=== PATIENT | male | born 1990 | race Hispanic/Latino ===

== ENCOUNTER 2018-04-16 18:47 | Emergency (ER) | payer SELFPAY ==
[2018-04-16] MEDS ORDERED: NA CHLORIDE 0.9% 1,000 ML ONE (19:50)
[2018-04-16] MEDS ORDERED: ONDANSETRON 4 MG/2 ML VIAL ONE (19:50)
[2018-04-16] MEDS ORDERED: KETOROLAC 30 MG/ML INJ ONE (19:50)
[2018-04-16] MEDS ORDERED: FAMOTIDINE 20 MG/2 ML VIAL IV ONE (19:50)
[2018-04-16 20:00] LABS: Absolute Lymphocytes (CBC) 1.9 K/uL (0.7-4.9); Absolute Monocytes 0.7 K/uL (0.1-1.3); Absolute Neutrophil 7.2 K/uL (1.8-8.0); Basophils % 0.2 % (0-1.3); Eosinophils % 0.1 % (0-4.4); Hematocrit 45.7 % (39.6-49.0); Lymphocytes % 19.4 % (15.3-44.8); MCH 30.4 pg (27.0-35.0); MPV 9.1 fL (7.6-11.3); Monocytes % 7.4 % (3.3-12.3); RBC Red Blood Cell Count 5.08 M/uL (4.33-5.43)
[2018-04-16 20:10] LABS: Albumin 4.7 g/dL (3.4-5.0); Bilirubin Direct 0.1 mg/dL (0-0.2); Bilirubin Total 0.6 mg/dL (0.2-1.0); Potassium 3.8 mmol/L (3.5-5.1); Protein, Total 9.2 g/dL (6.4-8.2)
--- NOTE | 2018-04-16 20:12 | RAD REPORT ---
EXAM DESCRIPTION: RAD - Chest Pa And Lat (2 Views) - 04/16/2018 8:07 pm CLINICAL HISTORY: Abdominal pain, chest pain COMPARISON: None. TECHNIQUE: PA and lateral views of the chest were obtained. FINDINGS: The lungs are underinflated. No focal lung parenchymal process. No pulmonary edema, failur e or volume overload. Heart size is normal and central vasculature is within normal limits. No ple ural effusion or pneumothorax seen. No acute bony finding noted. No aortic abnormality. IMPRESSION: No acute cardiopulmonary process.
--- NOTE | 2018-04-16 21:42 | ER ---
Nurse's Notes [facility] Name: Anthony Carolina Age: 28 yrs Sex: Male : 1990 Arrival Date: 04/16/2018 Time: 18:51 Bed 23 Private MD: None, None Diagnosis: Acute Alcohol-Induced Gastritis Presentation: 04/16 19:03 Presenting complaint: Patient states: "I drank 2 bottles of liquor last night, I don't lp1 usually drink and I've been throwing up all day and can't hold anything down"; patient concerned he may have alcohol poisoning, states some blood in vomit; states bruise to right foot "but it doesn't hurt". Transition of care: patient was not received from another setting of care. Onset of symptoms was April 16, 2018. Risk Assessment: Do you want to hurt yourself or someone else? Patient reports no desire to harm self or others. Initial Sepsis Screen: Does the patient meet any 2 criteria? No. Patient's initial sepsis screen is negative. Does the patient have a suspected source of infection? No. Patient's initial sepsis screen is negative. Care prior to arrival: None. 19:03 Method Of Arrival: Ambulatory lp1 19:03 Acuity: JACKIE 3 lp1 Historical: - Allergies: 19:05 No Known Allergies; lp1 - Home Meds: 19:05 None [Active]; lp1 - PMHx: 19:05 None; lp1 - PSHx: 19:05 None; lp1 - Immunization history:: Adult Immunizations up to date. - Social history:: Smoking status: Patient/guardian denies using tobacco. - Ebola Screening: : No symptoms or risks identified at this time. - Family history:: not pertinent. - Hospitalizations: : No recent hospitalization is reported. Screenin:15 Abuse screen: Denies threats or abuse. Denies injuries from another. Nutritional lp1 screening: No deficits noted. Tuberculosis screening: No symptoms or risk factors identified. Fall Risk None identified. Assessment: 19:13 GI: Pt is actively vomiting bile. lp1 19:14 General: Appears uncomfortable, Behavior is appropriate for age. Pain: Complains of lp1 pain in throat Pain currently is 3 out of 10 on a pain scale. Aggravated by vomiting. Neuro: Level of Consciousness is awake, alert, obeys commands, Oriented to person, place, time, situation, Gait is steady, Speech is normal, Pupils are PERRLA. Cardiovascular: Patient's skin is warm and dry. Respiratory: Respiratory effort is even, unlabored. : No signs and/or symptoms were reported regarding the genitourinary system. EENT: Reports pain throat. Derm: Skin is intact, Skin is clammy, Skin is flushed. Musculoskeletal: Circulation, motion, and sensation intact. 20:24 Reassessment: Patient is alert, oriented x 3, equal unlabored respirations, skin lp1 warm/dry/pink. Patient states feeling better. Patient states symptoms have improved. 21:28 Reassessment: Patient appears in no apparent distress at this time. Patient is alert, lp1 oriented x 3, equal unlabored respirations, skin warm/dry/pink. Patient states feeling better. GI: Patient currently denies nausea. Vital Signs: 19:05 BP 123 / 78; Pulse 79; Resp 18; Temp 98.4(O); Pulse Ox 98% on R/A; Weight 95.25 kg; lp1 Height 5 ft. 7 in. (170.18 cm); Pain 3/10; 20:25 BP 112 / 79; Pulse 73; Resp 16; Pulse Ox 100% on R/A; lp1 21:27 BP 119 / 70; Pulse 73; Resp 16; Pulse Ox 100% on R/A; lp1 19:05 Body Mass Index 32.89 (95.25 kg, 170.18 cm) lp1 ED Course: 18:51 Patient arrived in ED. sb2 18:52 None, None is Private Physician. sb2 19:03 Veronica Bennett, RN is Primary Nurse. lp1 19:05 Triage completed. lp1 19:05 Arm band placed on right wrist. lp1 19:13 Inserted saline lock: 20 gauge in right antecubital area, using aseptic technique. lp1 Blood collected. 19:14 Burton Márquez MD is Attending Physician. wa 19:15 Patient has correct armband on for positive identification. Pulse ox on. NIBP on. lp1 20:07 Chest Pa And Lat (2 Views) XRAY In Process Unspecified. EDMS 21:28 IV discontinued, intact, bleeding controlled, No redness/swelling at site. Pressure jp3 dressing applied. 21:28 No provider procedures requiring assistance completed. lp1 21:50 IV discontinued. lp1 Administered Medications: 19:51 Drug: NS 0.9% 1000 ml Route: IV; Rate: 1 bolus; Site: right antecubital; lp1 21:29 Follow up: IV Status: Completed infusion; IV Intake: 1000ml lp1 19:51 Drug: Zofran 4 mg Route: IVP; Site: right antecubital; lp1 20:24 Follow up: Response: Marked relief of symptoms; Nausea is decreased lp1 19:51 Drug: Pepcid 20 mg Route: IVP; Site: right antecubital; lp1 20:24 Follow up: Response: No adverse reaction lp1 19:51 Drug: TORadol 30 mg Route: IVP; Site: right antecubital; lp1 20:24 Follow up: Response: No adverse reaction lp1 Intake: 21:29 IV: 1000ml; Total: 1000ml. lp1 Outcome: 21:42 Discharge ordered by . anne 21:50 Discharged to home ambulatory, with significant other. lp1 21:50 Condition: good 21:50 Discharge instructions given to patient, Instructed on discharge instructions, follow up and referral plans. medication usage, Demonstrated understanding of instructions, follow-up care, medications, Prescriptions given X 2. 21:50 Patient left the ED. lp1 Signatures: Dispatcher [employer] EDMS Veronica Bennett RN RN lp1 Burton Márquez MD MD wa Billeau, Sheri sb2 Jose Dc jp3 Corrections: (The following items were deleted from the chart) 19:06 19:03 Presenting complaint: Patient states: "I drank 2 bottles of liquor last night, I lp1 don't usually drink and I've been throwing up all day and can't hold anything down"; patient concerned he may have alcohol poisoning, states bruise to right foot "but it doesn't hurt" lp1
--- NOTE | 2018-04-16 21:42 | EDPHYS ---
Physician Documentation [facility] Name: Anthony Carolina Age: 28 yrs Sex: Male : 1990 Arrival Date: 04/16/2018 Time: 18:51 Bed 23 Private MD: None, None ED Physician Burton Márquez HPI: 04/16 21:45 This 28 yrs old Male presents to ER via Ambulatory with complaints of Alcohol wa Poisoning. 21:45 The patient presents to the emergency department with vomiting, that is continuous, wa described as blood streaked, states usually does not drink alcohol heavily but drunk 2 bottles of liquor ([employer]) yesterday. has been vomiting since this morning. c/o burning in throat and chest. vomitus yellow in color. noted some blood streak at the end. Onset: The symptoms/episode began/occurred today. Possible causes: alcohol. as noted above. The symptoms are aggravated by nothing. The symptoms are alleviated by nothing. Associated signs and symptoms: Pertinent positives: nausea, vomiting, Pertinent negatives: abdominal pain, diarrhea, dysuria, fever. Severity of symptoms: At their worst the symptoms were moderate in the emergency department the symptoms have improved moderately. The patient has not experienced similar symptoms in the past. The patient has not recently seen a physician. states wants to make sure does not have alcohol poisoning. Historical: - Allergies: 19:05 No Known Allergies; lp1 - Home Meds: 19:05 None [Active]; lp1 - PMHx: 19:05 None; lp1 - PSHx: 19:05 None; lp1 - Immunization history:: Adult Immunizations up to date. - Social history:: Smoking status: Patient/guardian denies using tobacco. - Ebola Screening: : No symptoms or risks identified at this time. - Family history:: not pertinent. - Hospitalizations: : No recent hospitalization is reported. ROS: 21:48 Constitutional: Negative for fever, chills, and weight loss, Eyes: Negative for injury, wa pain, redness, and discharge, ENT: Negative for injury, pain, and discharge, Neck: Negative for injury, pain, and swelling, Cardiovascular: Negative for chest pain, palpitations, and edema, Respiratory: Negative for shortness of breath, cough, wheezing, and pleuritic chest pain, Back: Negative for injury and pain, : Negative for injury, bleeding, discharge, and swelling, MS/Extremity: Negative for injury and deformity, Skin: Negative for injury, rash, and discoloration, Neuro: Negative for headache, weakness, numbness, tingling, and seizure. 21:48 Abdomen/GI: Positive for nausea and vomiting, Negative for abdominal pain, diarrhea. 21:48 All other systems are negative. Exam: 21:49 Constitutional: This is a well developed, well nourished patient who is awake, alert, wa and in no acute distress. Head/Face: Normocephalic, atraumatic. Eyes: Pupils equal round and reactive to light, extra-ocular motions intact. Lids and lashes normal. Conjunctiva and sclera are non-icteric and not injected. Cornea within normal limits. Periorbital areas with no swelling, redness, or edema. ENT: Nares patent. No nasal discharge, no septal abnormalities noted. Tympanic membranes are normal and external auditory canals are clear. Oropharynx with no redness, swelling, or masses, exudates, or evidence of obstruction, uvula midline. Mucous membranes moist. Neck: Trachea midline, no thyromegaly or masses palpated, and no cervical lymphadenopathy. Supple, full range of motion without nuchal rigidity, or vertebral point tenderness. No Meningismus. Chest/axilla: Normal chest wall appearance and motion. Nontender with no deformity. No lesions are appreciated. Cardiovascular: Regular rate and rhythm with a normal S1 and S2. No gallops, murmurs, or rubs. Normal PMI, no JVD. No pulse deficits. Respiratory: Lungs have equal breath sounds bilaterally, clear to auscultation and percussion. No rales, rhonchi or wheezes noted. No increased work of breathing, no retractions or nasal flaring. Back: No spinal tenderness. No costovertebral tenderness. Full range of motion. Skin: Warm, dry with normal turgor. Normal color with no rashes, no lesions, and no evidence of cellulitis. MS/ Extremity: Pulses equal, no cyanosis. Neurovascular intact. Full, normal range of motion. Neuro: Awake and alert, GCS 15, oriented to person, place, time, and situation. Cranial nerves II-XII grossly intact. Motor strength 5/5 in all extremities. Sensory grossly intact. Cerebellar exam normal. Normal gait. Psych: Awake, alert, with orientation to person, place and time. Behavior, mood, and affect are within normal limits. 21:49 Abdomen/GI: Inspection: abdomen appears normal, Bowel sounds: normal, in all quadrants, Palpation: abdomen is soft and non-tender, in all quadrants, soft, nontender. Vital Signs: 19:05 BP 123 / 78; Pulse 79; Resp 18; Temp 98.4(O); Pulse Ox 98% on R/A; Weight 95.25 kg; lp1 Height 5 ft. 7 in. (170.18 cm); Pain 3/10; 20:25 BP 112 / 79; Pulse 73; Resp 16; Pulse Ox 100% on R/A; lp1 21:27 BP 119 / 70; Pulse 73; Resp 16; Pulse Ox 100% on R/A; lp1 19:05 Body Mass Index 32.89 (95.25 kg, 170.18 cm) lp1 MDM: 19:14 Patient medically screened. va 21:49 Differential diagnosis: suspect ETOH related gastritis. will check labs. supportive wa care. reassesss. Data reviewed: vital signs, nurses notes. Test interpretation: by ED physician or midlevel provider: labs noted within normal limits. . Response to treatment: the patient's symptoms have markedly improved after treatment, the patient's symptoms have resolved after treatment. ED course: counseled against binge ETOH. close f/u advised. understands to return for any worrisome concerns. 21:52 Differential diagnosis: Nonspecific abd pain, gastritis. va 04/16 19:37 Order name: Basic Metabolic Panel va 04/16 19:37 Order name: CBC with Diff va 04/16 19:37 Order name: Hepatic Function; Complete Time: 21:14 va 04/16 19:37 Order name: Lipase; Complete Time: 21:14 va 04/16 19:37 Order name: Basic Metabolic Panel; Complete Time: 21:14 EDMS 04/16 19:37 Order name: IV Saline Lock; Complete Time: 19:51 va 04/16 19:37 Order name: Labs collected and sent; Complete Time: 19:52 va 04/16 19:37 Order name: Chest Pa And Lat (2 Views) XRAY; Complete Time: 21:14 va 04/16 19:37 Order name: CBC with Automated Diff; Complete Time: 21:14 EDMS Administered Medications: 19:51 Drug: NS 0.9% 1000 ml Route: IV; Rate: 1 bolus; Site: right antecubital; lp1 21:29 Follow up: IV Status: Completed infusion; IV Intake: 1000ml lp1 19:51 Drug: Zofran 4 mg Route: IVP; Site: right antecubital; lp1 20:24 Follow up: Response: Marked relief of symptoms; Nausea is decreased lp1 19:51 Drug: Pepcid 20 mg Route: IVP; Site: right antecubital; lp1 20:24 Follow up: Response: No adverse reaction lp1 19:51 Drug: TORadol 30 mg Route: IVP; Site: right antecubital; lp1 20:24 Follow up: Response: No adverse reaction lp1 Disposition: 04/16/18 21:42 Discharged to Home. Impression: Acute Alcohol-Induced Gastritis. - Condition is Stable. - Discharge Instructions: Gastritis, Adult, [id number]. - Prescriptions for Zofran 4 mg Oral Tablet - take 1 tablet by ORAL route every 12 hours As needed; 20 tablet. Pepcid 20 mg Oral Tablet - take 1 tablet by ORAL route once daily for 5 days; 10 tablet. - Medication Reconciliation Form, Thank You Letter, Antibiotic Education, Prescription Opioid Use form. - Follow up: Private Physician; When: 1 - 2 days; Reason: Recheck today's complaints. - Problem is new. - Symptoms have improved. - Notes: do not drink alcohol heavily. return here immediately for any worsening concerns Signatures: Dispatcher [employer] EDMI Veronica Bennett RN RN 1 Burton Márquez MD MD wa Corrections: (The following items were deleted from the chart) 21:50 21:42 04/16/2018 21:42 Discharged to Home. Impression: Acute Alcohol-Induced Gastritis. lp1 Condition is Stable. Forms are Medication Reconciliation Form, Thank You Letter, Antibiotic Education, Prescription Opioid Use. Follow up: Private Physician; When: 1 - 2 days; Reason: Recheck today's complaints. Problem is new. Symptoms have improved. wa
== END 2018-04-16 21:50 | disposition home or self-care (01) ==
LOC: ER 18:47
DX: K29.20 Alcoholic gastritis without bleeding (principal)
CPT/HCPCS: 36415; 71046; 80048; 80076; 83690; 85025; 96361; 96374; 96375; 99284; J2405; J7030

== ENCOUNTER 2022-10-18 14:50 | Emergency (ER) | payer SELFPAY ==
--- OUTSIDE RECORDS SUMMARY | 2022-10-18 14:53 | XMS REPORT | Continuity of Care Document ---
:1990 Author Organization [facility] t Address [address] [place] [address] Care Team Providers Name Role Phone KATIUSKA DELGADO Primary Care Physician Unavailable LORIN BYNUM Attending Clinician Unavailable Lorin Rodriguez Attending Clinician KATIUSKA DELGADO Attending Clinician Unavailable Doctor Unassigned, [place] Attending Clinician Unavailable Ely Lopez CNM Attending Clinician dk Attending Clinician Unavailable dk Admitting Clinician Unavailable Payers Payer Name Policy Type Policy Number Effective Date Expiration Date S leilani [facility] - [id number] 2022 00:00:00 OUT OF STATE Problems This patient has no known problems. Allergies, Adverse Reactions, Alerts Allergy Allergy Status Severity Reaction(s) Onset Inactive Treating Comm ents Source Name Type Date Date Clinician NO KNOWN Drug Active [facility] ALLERGIE Class [facility] Medical Branch Social History Social Habit Start Date Stop Date Quantity Comments Source Exposure to 2022-10-05 2022-10-15 Not sure [facility] SARS-CoV-2 (event) 00:00:00 18:31:00 Medica l Branch Sex Assigned At [birth year] [facility] 00:00:00 00:00:00 Medical Branch Smoking Status Start Date Stop Date Source Tobacco smoking consumption [facility] Medical unknown Branch Medications Ordered Filled Start Stop Current Ordering Indication Dosage Frequency Signature Comments Components Source Medication Medication Date Date Medication? Clinician (SIG) Name Name ibuprofen Yes [id number] 800mg Take 1 [facility] 800 mg 5-08 tablet by ity of tablet 00:00: mouth [place] 00 every 8 Medical (eight) Branch hours as needed for Pain (scale 4-6). benzonatate Yes [id number] 100mg Take 1 [facility] 100 mg 5-08 capsule by ity of capsule 00:00: mouth 3 [place] 00 (three) Medical times Branch daily as needed for Cough. Vital Signs Vital Name Observation Time Observation Value Comments Source Systolic blood 2022-10-15 21:47:00 105 mm[Hg] [facility] Diastolic blood 2022-10-15 21:47:00 66 mm[Hg] [facility] 2022-10-15 21:47:00 94 /min [facility] Body temperature 2022-10-15 21:47:00 36.78 Kristen [facility] Respiratory rate 2022-10-15 21:47:00 18 /min [facility] Body weight 2022-10-15 21:47:00 98.431 kg [facility] Oxygen saturation in 2022-10-15 21:47:00 99 /min [facility] Arterial blood by [facility] Pulse oximetry Branch Procedures Procedure Date / Time Performed Performing Clinician [facility] e RAPID STREP SCREEN FOR 2022-10-15 22:23:00 [facility] Medical Branch RAPID INFLUENZA A/B 2022-10-15 22:23:00 Lorin Bynum [facility] COVID-19 (ID NOW RAPID 2022-10-15 22:23:00 Lorin Bynum [facility] TESTING) Medical Branch ASSIGNMENT OF BENEFITS 2022-10-15 22:01:34 Doctor Unassigned, No [facility] Name Medical Branch CONSENT/REFUSAL FOR 2022-10-15 21:37:25 Doctor Unassigned, No [facility] DIAGNOSIS AND Name Medical Branch TREATMENT NOTICE OF PRIVACY 2022-09-04 12:59:17 Doctor Unassigned, No [facility] PRACTICES Name Medical Branch Encounters Start End Encounter Admission Attending Care Care Encounter Source Date/Time Date/Time Type Type Clinicians Facility Department ID 2022-10-15 2022-10-15 Emergency X LORIN BYNUM [facility] ERT [id number] Univers 16:48:00 18:39:00 ity of [facility] 2022-10-15 2022-10-15 Emergency Lorin Bynum [facility] [id number] Univers 16:48:00 18:39:00 T MATADOR [id number] i ty of [place] [id number] [place] [facility] [id number] [facility] [address] [place] 2022-09-04 2022-09-04 Outpatient R DANNY, [facility] [id number] Univers 08:00:00 08:00:00 KATIUSKA [facility] [facility] 2022-09-04 2022-09-04 Orders Doctor ASHLEY [id number] Univers 00:00:00 00:00:00 Only Unassigned, REINALDO [id number] ity of [place] [facility] [id number] [place] [id number] [facility] [address] [place] 2022-09-04 2022-09-04 [facility] [id number] Univers 00:00:00 00:00:00 Ely Zurita [employer]PERATOR [id number] i ty of [facility] [id number] [place] MATERNAL [phone] Med ical & CHILD [address] [place] [address] 2019-09-24 2019-09-24 Outpatient dk LUCIANO [facility] [address] [place] 11:34:00 11:34:00 0416 [facility] Results This patient has no known results.
--- NOTE | 2022-10-18 15:09 | ER ---
Nurse's Notes [facility] Name: Anthony Carolina Age: 32 yrs Sex: Male : 1990 Arrival Date: 10/18/2022 Time: 14:50 Bed 12 Private MD: Diagnosis: Acute serous otitis media, left ear Presentation: 10/18 14:57 Chief complaint: Patient states: Left ear clogged/ringing, sore throat, coughing X 1 ld1 week. Coronavirus screen: At this time, the client does not indicate any symptoms associated with coronavirus-19. Ebola Screen: No symptoms or risks identified at this time. Initial Sepsis Screen: Does the patient meet any 2 criteria? No. Patient's initial sepsis screen is negative. Does the patient have a suspected source of infection? No. Patient's initial sepsis screen is negative. Risk Assessment: Do you want to hurt yourself or someone else? Patient reports no desire to harm self or others. Onset of symptoms was October 18, 2022. 14:57 Method Of Arrival: Ambulatory ld1 14:57 Acuity: JACKIE 4 ld1 Triage Assessment: 14:58 General: Appears in no apparent distress. comfortable, Behavior is calm, cooperative, ld1 appropriate for age. Pain: Denies pain. EENT: Reports pain in left ear. Neuro: Level of Consciousness is awake, alert, obeys commands, Oriented to person, place, time, situation. Cardiovascular: Capillary refill < 3 seconds Patient's skin is warm and dry. Respiratory: Airway is patent Respiratory effort is even, unlabored. GI: Abdomen is round non-distended. : No signs and/or symptoms were reported regarding the genitourinary system. Derm: No signs and/or symptoms reported regarding the dermatologic system. Musculoskeletal: No signs and/or symptoms reported regarding the musculoskeletal system. Historical: - Allergies: 14:58 No Known Allergies; ld1 - Home Meds: 14:58 None [Active]; ld1 - PMHx: 14:58 None; ld1 - PSHx: 14:58 None; ld1 - Immunization history:: Adult Immunizations up to date, Client reports receiving the 2nd dose of the Covid vaccine. - Social history:: Smoking status: Patient denies any tobacco usage or history of. Patient/guardian denies using alcohol. Screenin:15 [facility] ED Fall Risk Assessment (Adult) History of falling in the last 3 months, ph including since admission No falls in past 3 months (0 pts) Confusion or Disorientation No (0 pts) Intoxicated or Sedated No (0 pts) Impaired Gait No (0 pts) Mobility Assist Device Used No (0 pt) Altered Elimination No (0 pt) Score/Fall Risk Level 0 - 2 = Low Risk Oriented to surroundings, Maintained a safe environment, Hourly rounding (assess needs \T\ fall precautionary measures) done. Abuse screen: Denies threats or abuse. Denies injuries from another. Nutritional screening: No deficits noted. Tuberculosis screening: No symptoms or risk factors identified. Assessment: 15:17 General: Appears in no apparent distress. comfortable, Behavior is calm, cooperative, ph appropriate for age. Pain: Complains of pain in left ear. Neuro: Level of Consciousness is awake, alert, obeys commands, Oriented to person, place, time, situation. Cardiovascular: Capillary refill < 3 seconds in bilateral fingers. Respiratory: Airway is patent Respiratory effort is even, unlabored. EENT: Reports pain in left ear. Vital Signs: 14:57 BP 110 / 90; Pulse 80; Resp 18; Temp 97.6(O); Pulse Ox 100% on R/A; Weight 97.52 kg; ld1 Height 5 ft. 7 in. ; Pain 0/10; 14:57 Body Mass Index 33.67 (97.52 kg, 170.18 cm) ld1 14:57 Pain Scale: Adult ld1 ED Course: 14:53 Patient arrived in ED. mr 14:54 Elpidio Tracey PA is PHCP. [facility] 14:54 Jayla Laura MD is Attending Physician. [facility] 14:58 Triage completed. ld1 14:58 Arm band placed on right wrist. ld1 15:09 Anastacia Granado, RN is Primary Nurse. ph 15:16 No provider procedures requiring assistance completed. Patient did not have IV access ph during this emergency room visit. 15:17 Patient has correct armband on for positive identification. ph Administered Medications: No medications were administered Medication: 15:16 VIS not applicable for this client. ph Outcome: 15:08 Discharge ordered by . [facility] 15:16 Discharged to home ambulatory. ph 15:16 Condition: good 15:16 Discharge instructions given to patient, Instructed on discharge instructions, follow up and referral plans. medication usage, Demonstrated understanding of instructions, follow-up care, medications, Prescriptions given X 1. 15:18 Patient left the ED. ph Signatures: Elpidio Tracey PA PA jmm [place], Darline GranadoAnastacia RN RN ph Marline Contreras RN RN ld1 Corrections: (The following items were deleted from the chart) 15:16 15:16 No provider procedures requiring assistance completed. ph ph 15:16 15:16 IV discontinued, intact, bleeding controlled, No redness/swelling at site. ph Pressure dressing applied, ph
--- NOTE | 2022-10-18 15:09 | EDPHYS ---
Physician Documentation [facility] Name: Anthony Carolina Age: 32 yrs Sex: Male : 1990 Arrival Date: 10/18/2022 Time: 14:50 Bed 12 Private MD: ED Physician Jayla Laura HPI: 10/18 15:05 This 32 yrs old Male presents to ER via Ambulatory with complaints of Ear jmm Pain, Sore Throat. 15:05 The patient presents with pain. The complaints affect the left ear. Onset: The jmm symptoms/episode began/occurred gradually, 1 week(s) ago. Modifying factors: The symptoms are alleviated by nothing, the symptoms are aggravated by nothing. Associated signs and symptoms: Pertinent positives: cough, Pertinent negatives: fever. . Historical: - Allergies: 14:58 No Known Allergies; ld1 - Home Meds: 14:58 None [Active]; ld1 - PMHx: 14:58 None; ld1 - PSHx: 14:58 None; ld1 - Immunization history:: Adult Immunizations up to date, Client reports receiving the 2nd dose of the Covid vaccine. - Social history:: Smoking status: Patient denies any tobacco usage or history of. Patient/guardian denies using alcohol. ROS: 15:05 Constitutional: Negative for fever, chills, and weight loss. jmm 15:05 ENT: Positive for ear pain. 15:05 ENT: Positive for sore throat. 15:05 Respiratory: Positive for cough. 15:05 All other systems are negative. Exam: 15:05 Constitutional: This is a well developed, well nourished patient who is awake, alert, jmm and in no acute distress. Head/Face: atraumatic. Eyes: EOMI, no conjunctival erythema appreciated 15:05 Neck: Trachea midline, Supple Chest/axilla: Normal chest wall appearance and motion. Cardiovascular: Regular rate and rhythm. No edema appreciated Respiratory: Normal respirations, no respiratory distress appreciated Abdomen/GI: Non distended Back: Normal ROM Skin: General appearance color normal MS/ Extremity: Moves all extremities, no obvious deformities appreciated, no edema noted to the lower extremities Neuro: Awake and alert Psych: Behavior is normal, Mood is normal, Patient is cooperative and pleasant 15:05 ENT: TM's: erythema, that is moderate, on the left. Vital Signs: 14:57 BP 110 / 90; Pulse 80; Resp 18; Temp 97.6(O); Pulse Ox 100% on R/A; Weight 97.52 kg; ld1 Height 5 ft. 7 in. ; Pain 0/10; 14:57 Body Mass Index 33.67 (97.52 kg, 170.18 cm) ld1 14:57 Pain Scale: Adult ld1 MDM: 15:01 Patient medically screened. [facility] 15:07 Differential diagnosis: otitis media. Data reviewed: vital signs, nurses notes. jmm Counseling: I had a detailed discussion with the patient and/or guardian regarding: the historical points, exam findings, and any diagnostic results supporting the discharge/admit diagnosis, the need for outpatient follow up, to return to the emergency department if symptoms worsen or persist or if there are any questions or concerns that arise at home. Administered Medications: No medications were administered Disposition: 15:54 STAFF ATTESTATION STATEMENT: I was immediately available onsite in the emergency sd2 department for consultation in the care of this patient. I did not see or examine this patient. Jayla Laura MD. Disposition Summary: 10/18/22 15:08 Discharge Ordered Location: Home jm Condition: Stable [facility] Diagnosis - Acute serous otitis media, left ear [facility] Followup: jm - With: Private Physician - When: 2 - 3 days - Reason: Recheck today's complaints, Continuance of care, Re-evaluation by your physician Discharge Instructions: - Discharge Summary Sheet [facility] - Otitis Media, Adult [facility] Forms: - Work release form [facility] - Medication Reconciliation Form [facility] - Thank You Letter [facility] - Antibiotic Education [facility] - Prescription Opioid Use [facility] Prescriptions: - cefdinir 300 mg Oral capsule - take 1 capsule by ORAL route every 12 hours for 10 days; 20 capsule; Refills: [facility] 0, Product Selection Permitted Signatures: Elpidio Tracey PA PA jmm Sims, Lauren, RN RN ld1 Jayla Laura MD MD sd2
[2022-10-18 15:27] VITALS: BP 110/90; TEMP 97.6; O2SAT 100
== END 2022-10-18 15:18 | disposition home or self-care (01) ==
LOC: ER 14:50
DX: H65.02 Acute serous otitis media, left ear (principal)
CPT/HCPCS: 99283